=== PATIENT | female | born 1955 | race Caucasian/White ===

== ENCOUNTER 2020-04-14 13:15 | Inpatient (IN) ==
[2020-04-14 14:38] LABS: Alanine Aminotransferase 69 U/L (13-56); Albumin 2.6 G/DL (3.4-5.0); Alkaline Phosphatase 104 U/L (45-117); Aspartate Amino Transferase 31 U/L (0-37); Bilirubin,Total < 0.39 MG/DL (0.2-1.0); Blood Urea Nitrogen 27 MG/DL (7-18); Calcium 9.1 MG/DL (8.5-10.1); Estimated Glom Filtration Rate 14 ML/MIN; Glucose 225 MG/DL (74-106); Osmolality,Calculated 290.4 MOS/KG (273-304); Total Protein 6.6 G/DL (6.4-8.3)
[2020-04-14] MEDS ORDERED: POTASSIUM CHLORIDE 20 MEQ TABLET PO ONE ×2 (14:45→14:46)
[2020-04-14 14:46] LABS: Basophils % 0.1 % (0.0-0.8); Eosinophils % 0.1 % (0.00-10.9); Hematocrit 51.2 VOL% (35.7-47.0); Hemoglobin 17.8 GM/DL (12.0-16.0); Immature Granulocytes Absolute 0.54 #; Lymphocytes # 0.7 10*3/uL (1.4-4.0); Lymphocytes % 3.7 % (21.3-54.2); Mean Corpuscular HGB Conc 34.8 GM/DL (32-36); Mean Corpuscular Volume 102.4 FL (87-102); Mean Platelet Volume 9.4 FL (9.6-12.0); Monocytes % 16.5 % (1.7-12.7); NRBC # 0.52 10*3/uL; Neutrophils % 76.6 % (38.7-73.9); Platelet Count 449 T/CUMM (130-400); Red Cell Distribution Width 19.1 % (9.3-17.3); White Blood Count 17.8 T/CUMM (4-12)
[2020-04-14] MEDS ORDERED: POTASSIUM CHLORIDE 20 MEQ/15 ML UDCUP ONE (14:56)
[2020-04-14] MEDS ORDERED: LACTATED RINGERS 1,000 ML IV ONE (15:24)
[2020-04-14 15:34] LABS: Lymphocytes 2 % (20-55); Macrocytosis 1+; Nucleated Red Blood Cells 3 (0-5); Platelet Estimate Adequate; Polychromasia 1+; Segmented Neutrophils 82 % (50-85); Total Cells Counted 100
[2020-04-14] MEDS ORDERED: POTASSIUM CHLORIDE RIDER 10 MEQ in PREMIX 1 EACH IV ONE (15:42)
[2020-04-14 16:00] LABS: ABG Base Excess -25.4 MMOL/L (-2.5-2.5); ABG HCO3 8.1 MMOL/L (20-26); ABG Oxygen Saturation 98.1 % (95-100); ABG TCO2 4.5 MMOL/L (23-27)
[2020-04-14] MEDS ORDERED: POTASSIUM CHLORIDE INJ 30 MEQ in SODIUM CHLORIDE 0.9% 1,000 ML IV SCH (16:00)
[2020-04-14 16:02] LABS: INR 1.4; PT Patient Result 15.1 SECS (9.8-11.9); Partial Thromboplastin Time 24.2 SECS (23.9-33.8)
[2020-04-14 16:03] LABS: ABG PH 7.082 (7.35-7.45)
[2020-04-14 16:04] LABS: ABG PCO2 16.6 MM HG (35-48)
[2020-04-14] MEDS ORDERED: DEXTROSE 50% 25 GM/50 ML VIAL IV PRN (16:12)
[2020-04-14] MEDS ORDERED: ONDANSETRON 4 MG/2 ML VIAL IV PRN (16:12)
[2020-04-14] MEDS ORDERED: GLUCAGON 1 MG VIAL IM PRN (16:12)
[2020-04-14] MEDS ORDERED: ACETAMINOPHEN 325 MG TABLET PO PRN (16:42)
[2020-04-14 17:01] LABS: Bacteria,Urine Few /HPF (Few); Bilirubin,Urine Negative (Negative); Blood, Urine Large mg/dL (Negative); Glucose,Urine (UA) 50 mg/dL (Negative); Ketones,Urine Negative (Negative); Mucus,Urine Occasional /LPF (Occasional); Nitrite,Urine Negative (Negative); Protein,Urine 30 MG/DL; Squamous Epithelial Cell,Urine Occasional /HPF (0-10); Urine Appearance Slightly Hazy (Clear); Urine Color Yellow (Yellow); Urine Urobilinogen < 2.0 EU/DL (0.2-1.0); WBC,Urine 4 /HPF (0-6)
[2020-04-14] MEDS: ENOXAPARIN 30 MG/0.3 ML SYRINGE SUBCUT SCH (17:30)
[2020-04-14 18:46] LABS: Barbiturates Screen,Urine Negative (Negative); Benzodiazepines Screen,Urine Negative (Negative); Cannabinoid Screen,Urine Negative (Negative); Opiate Screen,Urine Negative (Negative); Phencyclidine Screen,Urine Negative (Negative)
[2020-04-14] MEDS: ASPIRIN EC 81 MG TABLET PO SCH (23:50)
[2020-04-14] MEDS: valACYclovir 500 MG TABLET PO SCH (23:50)
[2020-04-14] MEDS: SODIUM BICARB INJ 50 MEQ in SODIUM CHLORIDE 0.45% 1,000 ML IV SCH (23:50)
[2020-04-15] MEDS ORDERED: INFLUENZA VIRUS VACCINE 0.5 ML SYRINGE IM ONE (02:00)
[2020-04-15] MEDS: SODIUM BICARB INJ 50 MEQ in SODIUM CHLORIDE 0.45% 1,000 ML IV SCH (05:38)
[2020-04-15 05:39] LABS: Basophils % 0.1 % (0.0-0.8); Eosinophils % 0.1 % (0.00-10.9); Hematocrit 43.7 VOL% (35.7-47.0); Hemoglobin 15.6 GM/DL (12.0-16.0); Immature Granulocytes % 3.1 %; Immature Granulocytes Absolute 0.52 #; Lymphocytes # 0.9 10*3/uL (1.4-4.0); Lymphocytes % 5.4 % (21.3-54.2); Mean Corpuscular HGB Conc 35.7 GM/DL (32-36); Mean Corpuscular Volume 99.1 FL (87-102); Mean Platelet Volume 9.9 FL (9.6-12.0); Monocytes % 18.3 % (1.7-12.7); NRBC # 0.49 10*3/uL; Platelet Count 385 T/CUMM (130-400); Red Blood Count 4.41 MC/CUMM (3.8-5.5); Red Cell Distribution Width 18.2 % (9.3-17.3)
[2020-04-15 06:07] LABS: Alanine Aminotransferase 53 U/L (13-56); Albumin 2.2 G/DL (3.4-5.0); Alkaline Phosphatase 89 U/L (45-117); Aspartate Amino Transferase 22 U/L (0-37); Bilirubin,Total < 0.39 MG/DL (0.2-1.0); Blood Urea Nitrogen 33 MG/DL (7-18); Calcium 8.4 MG/DL (8.5-10.1); Estimated Glom Filtration Rate 12 ML/MIN; Glucose 149 MG/DL (74-106); HDL Cholesterol 31 MG/DL (40-60); Osmolality,Calculated 295.8 MOS/KG (273-304); Risk Ratio 4.84; Thyroid Stimulating Hormone 0.845 uIU/ml (0.358-3.74); Total Protein 5.6 G/DL (6.4-8.3); Triglycerides 371 MG/DL (2-150); VLDL CHOLESTEROL 74.2 MG/DL
[2020-04-15 06:09] LABS: Band Neutrophils 2 % (0-10); Hypochromasia 1+; Lymphocytes 8 % (20-55); Macrocytosis 1+; Nucleated Red Blood Cells 2 (0-5); Segmented Neutrophils 74 % (50-85); Total Cells Counted 100
[2020-04-15 06:10] LABS: Platelet Estimate Normal; Polychromasia Slight; Target Cells Slight
[2020-04-15 06:11] LABS: Anisocytosis 1+
[2020-04-15] MEDS: POTASSIUM CHLORIDE RIDER 10 MEQ in PREMIX 1 EACH IV PRN ×10 (06:22→23:52)
[2020-04-15] MEDS ORDERED: SODIUM BICARB INJ 100 MEQ in SODIUM CHLORIDE 0.45% 1,000 ML IV SCH (06:55)
[2020-04-15] MEDS ORDERED: LURASIDONE 40 MG TABLET PO SCH (09:00)
[2020-04-15] MEDS: [UNRECOGNIZED DRUG - OTHER] IV SCH ×2 (09:10→23:55)
[2020-04-15] MEDS: POTASSIUM CHLORIDE IV SCH ×2 (09:10→23:55)
[2020-04-15] MEDS: SODIUM BICARB IV SCH ×2 (09:10→23:55)
[2020-04-15] MEDS: TOLTERODINE 2 MG TABLET PO SCH (10:01)
[2020-04-15] MEDS: PANTOPRAZOLE 40 MG VIAL IV SCH (10:02)
[2020-04-15] MEDS: valACYclovir 500 MG TABLET PO SCH ×2 (10:02→21:23)
[2020-04-15] MEDS: POTASSIUM CHLORIDE 20 MEQ TABLET PO SCH ×2 (14:14→21:22)
[2020-04-15 17:17] LABS: Calcium 8.6 MG/DL (8.5-10.1); Osmolality,Calculated 296.8 MOS/KG (273-304)
[2020-04-15] MEDS: ENOXAPARIN 30 MG/0.3 ML SYRINGE SUBCUT SCH (18:18)
[2020-04-15] MEDS: ASPIRIN EC 81 MG TABLET PO SCH (21:23)
[2020-04-16 04:24] LABS: ABG Base Excess -18.1 MMOL/L (-2.5-2.5); ABG HCO3 11.6 MMOL/L (20-26); ABG PH 7.248 (7.35-7.45)
[2020-04-16 04:27] LABS: ABG PCO2 18.3 MM HG (35-48)
[2020-04-16 06:37] LABS: Bacteria,Urine Occasional /HPF (Few); Bilirubin,Urine Negative (Negative); Blood, Urine Moderate mg/dL (Negative); Glucose,Urine (UA) Negative (Negative); Ketones,Urine Negative (Negative); Mucus,Urine Occasional /LPF (Occasional); Nitrite,Urine Positive (Negative); Protein,Urine 30 MG/DL; RBC,Urine 2 /HPF (0-4); Squamous Epithelial Cell,Urine Occasional /HPF (0-10); Urine Appearance CLEAR (Clear); Urine Color Yellow (Yellow); Urine Urobilinogen < 2.0 EU/DL (0.2-1.0); WBC,Urine 13 /HPF (0-6)
[2020-04-16 06:48] LABS: Basophils % 0.1 % (0.0-0.8); Eosinophils % 0.1 % (0.00-10.9); Hematocrit 42.3 VOL% (35.7-47.0); Hemoglobin 15.2 GM/DL (12.0-16.0); Immature Granulocytes % 3.8 %; Immature Granulocytes Absolute 0.63 #; Lymphocytes # 0.9 10*3/uL (1.4-4.0); Lymphocytes % 5.4 % (21.3-54.2); Mean Corpuscular HGB Conc 35.9 GM/DL (32-36); Mean Corpuscular Volume 99.1 FL (87-102); Mean Platelet Volume 9.7 FL (9.6-12.0); Monocytes % 14.9 % (1.7-12.7); NRBC # 0.34 10*3/uL; Neutrophils % 75.7 % (38.7-73.9); Platelet Count 308 T/CUMM (130-400); Red Blood Count 4.27 MC/CUMM (3.8-5.5); Red Cell Distribution Width 19.3 % (9.3-17.3); White Blood Count 16.4 T/CUMM (4-12)
[2020-04-16 07:09] LABS: Uric Acid 8.3 MG/DL (2.6-6.0)
[2020-04-16 07:19] LABS: Calcium 8.4 MG/DL (8.5-10.1); Osmolality,Calculated 301.6 MOS/KG (273-304)
[2020-04-16 07:26] LABS: Band Neutrophils 5 % (0-10); Lymphocytes 8 % (20-55); Nucleated Red Blood Cells 3 (0-5); Platelet Estimate Adequate; Segmented Neutrophils 76 % (50-85); Total Cells Counted 100
[2020-04-16 07:27] LABS: Macrocytosis Slight
[2020-04-16] MEDS: valACYclovir 500 MG TABLET PO SCH ×2 (09:08→21:43)
[2020-04-16] MEDS: POTASSIUM CHLORIDE 20 MEQ TABLET PO SCH ×2 (09:08→21:43)
[2020-04-16] MEDS: TOLTERODINE 2 MG TABLET PO SCH (09:09)
[2020-04-16] MEDS: PANTOPRAZOLE 40 MG VIAL IV SCH (09:09)
[2020-04-16] MEDS: HEPARIN 5,000 UNIT/1 ML VIAL SUBCUT SCH ×2 (10:24→21:44)
[2020-04-16] MEDS: POTASSIUM CHLORIDE IV SCH ×3 (11:45→17:28)
[2020-04-16] MEDS: [UNRECOGNIZED DRUG - OTHER] IV SCH ×3 (11:45→17:28)
[2020-04-16] MEDS: SODIUM BICARB IV SCH ×3 (11:45→17:28)
[2020-04-16] MEDS: ASPIRIN EC 81 MG TABLET PO SCH (21:44)
[2020-04-17 05:00] LABS: ABG Base Excess -13.4 MMOL/L (-2.5-2.5); ABG HCO3 14.2 MMOL/L (20-26); ABG Oxygen Saturation 97.7 % (95-100); ABG PH 7.347 (7.35-7.45); ABG PO2 98.1 MM HG (80-95); ABG TCO2 9.4 MMOL/L (23-27); Allen Test Positive; Pt O2 Delivery Device Room Air
[2020-04-17 05:02] LABS: ABG PCO2 19.4 MM HG (35-48)
[2020-04-17] MEDS: [UNRECOGNIZED DRUG - OTHER] IV SCH (05:22)
[2020-04-17] MEDS: SODIUM BICARB IV SCH (05:22)
[2020-04-17] MEDS: POTASSIUM CHLORIDE IV SCH (05:22)
[2020-04-17 05:43] LABS: Basophils % 0.1 % (0.0-0.8); Eosinophils # 0.1 10*3/uL (0.0-0.87); Eosinophils % 0.6 % (0.00-10.9); Hematocrit 37.1 VOL% (35.7-47.0); Hemoglobin 13.4 GM/DL (12.0-16.0); Immature Granulocytes % 4.9 %; Immature Granulocytes Absolute 0.73 #; Lymphocytes % 6.4 % (21.3-54.2); Mean Corpuscular HGB Conc 36.1 GM/DL (32-36); Mean Corpuscular Volume 101.4 FL (87-102); Mean Platelet Volume 10.3 FL (9.6-12.0); Monocytes % 10.7 % (1.7-12.7); NRBC # 0.17 10*3/uL; Neutrophils % 77.3 % (38.7-73.9); Platelet Count 273 T/CUMM (130-400); Red Blood Count 3.66 MC/CUMM (3.8-5.5); Red Cell Distribution Width 18.8 % (9.3-17.3)
[2020-04-17 06:09] LABS: Albumin 1.7 G/DL (3.4-5.0); Bilirubin,Total 0.8 MG/DL (0.2-1.0); Calcium 8.3 MG/DL (8.5-10.1); Osmolality,Calculated 285.5 MOS/KG (273-304); Total Protein 5.3 G/DL (6.4-8.3)
[2020-04-17 06:34] LABS: Band Neutrophils 2 % (0-10); Eosinophils 1 % (0-10); Lymphocytes 9 % (20-55); Nucleated Red Blood Cells 1 (0-5); Platelet Estimate Normal; Segmented Neutrophils 86 % (50-85); Total Cells Counted 100
[2020-04-17] MEDS ORDERED: LEVOFLOXACIN INJ 500 MG in PREMIX 1 EACH IV ONE (08:11)
[2020-04-17] MEDS: HEPARIN 5,000 UNIT/1 ML VIAL SUBCUT SCH ×2 (09:48→22:11)
[2020-04-17] MEDS: PANTOPRAZOLE 40 MG VIAL IV SCH (09:51)
[2020-04-17] MEDS: valACYclovir 500 MG TABLET PO SCH ×2 (09:52→22:11)
[2020-04-17] MEDS: TOLTERODINE 2 MG TABLET PO SCH (10:07)
[2020-04-17] MEDS: LURASIDONE 40 MG TABLET PO SCH (10:08)
[2020-04-17] MEDS: SODIUM BICARB INJ 150 MEQ in DEXTROSE 5% 850 ML IV SCH ×2 (11:16→18:15)
[2020-04-17] MEDS: DESITIN 4OZ/NYSTATIN 15 GRAM MIXTURE PASTE TOP SCH (22:11)
[2020-04-17] MEDS: ASPIRIN EC 81 MG TABLET PO SCH (22:12)
[2020-04-18 04:20] LABS: ABG HCO3 19.5 MMOL/L (20-26); ABG Oxygen Saturation 98.9 % (95-100); ABG PCO2 25.6 MM HG (35-48); ABG PH 7.423 (7.35-7.45); ABG TCO2 14.4 MMOL/L (23-27); Allen Test Positive
[2020-04-18] MEDS: SODIUM BICARB INJ 150 MEQ in DEXTROSE 5% 850 ML IV SCH (04:35)
[2020-04-18 06:17] LABS: Calcium 7.8 MG/DL (8.5-10.1); Osmolality,Calculated 298.6 MOS/KG (273-304)
[2020-04-18 06:29] LABS: Acetaminophen 4.8 UG/ML (10-30); Salicylate < 2.8 MG/DL (2.8-20)
[2020-04-18] MEDS: POTASSIUM CHLORIDE 20 MEQ TABLET PO PRN ×3 (07:16→13:18)
[2020-04-18 07:19] LABS: Basophils # 0.1 10*3/uL (0.0-0.2); Basophils % 0.8 % (0.0-0.8); Eosinophils # 0.1 10*3/uL (0.0-0.87); Eosinophils % 0.8 % (0.00-10.9); Hematocrit 29.7 VOL% (35.7-47.0); Immature Granulocytes % 5.6 %; Immature Granulocytes Absolute 0.99 #; Lymphocytes # 0.9 10*3/uL (1.4-4.0); Lymphocytes % 4.9 % (21.3-54.2); Mean Corpuscular Volume 96.7 FL (87-102); Mean Platelet Volume 10.3 FL (9.6-12.0); Monocytes % 7.2 % (1.7-12.7); NRBC # 0.17 10*3/uL; Neutrophils % 80.7 % (38.7-73.9); Platelet Count 272 T/CUMM (130-400); Red Blood Count 3.07 MC/CUMM (3.8-5.5); White Blood Count 17.7 T/CUMM (4-12)
[2020-04-18 07:25] LABS: Anisocytosis 2+; Band Neutrophils 20 % (0-10); Eosinophils 2 % (0-10); Lymphocytes 5 % (20-55); Macrocytosis 2+; Nucleated Red Blood Cells 2 (0-5); Platelet Estimate Normal; Segmented Neutrophils 65 % (50-85); Total Cells Counted 100
[2020-04-18 07:26] LABS: Toxic Granulation 1+
[2020-04-18] MEDS: valACYclovir 500 MG TABLET PO SCH ×2 (10:30→21:12)
[2020-04-18] MEDS: LURASIDONE 40 MG TABLET PO SCH (10:31)
[2020-04-18] MEDS: HEPARIN 5,000 UNIT/1 ML VIAL SUBCUT SCH ×2 (10:38→21:16)
[2020-04-18] MEDS: DESITIN 4OZ/NYSTATIN 15 GRAM MIXTURE PASTE TOP SCH ×2 (10:42→21:17)
[2020-04-18] MEDS: PANTOPRAZOLE 40 MG VIAL IV SCH (13:18)
[2020-04-18] MEDS: TOLTERODINE 2 MG TABLET PO SCH (13:18)
[2020-04-18] MEDS: POTASSIUM CHLORIDE INJ 30 MEQ in DEXTROSE 5% NACL 0.9% 1,000 ML IV SCH (17:02)
[2020-04-18] MEDS: ASPIRIN EC 81 MG TABLET PO SCH (21:12)
[2020-04-19 05:48] LABS: Eosinophils # 0.4 10*3/uL (0.0-0.87); Eosinophils % 1.7 % (0.00-10.9); Hemoglobin 11.5 GM/DL (12.0-16.0); Immature Granulocytes % 8.8 %; Immature Granulocytes Absolute 1.93 #; Lymphocytes # 1.6 10*3/uL (1.4-4.0); Lymphocytes % 7.1 % (21.3-54.2); Mean Corpuscular HGB Conc 37.1 GM/DL (32-36); Mean Corpuscular Volume 96.3 FL (87-102); Mean Platelet Volume 10.8 FL (9.6-12.0); Monocytes % 6.7 % (1.7-12.7); NRBC # 0.12 10*3/uL; Neutrophils % 75.7 % (38.7-73.9); Platelet Count 265 T/CUMM (130-400); Red Blood Count 3.22 MC/CUMM (3.8-5.5); Red Cell Distribution Width 18.4 % (9.3-17.3); White Blood Count 21.9 T/CUMM (4-12)
[2020-04-19] MEDS: POTASSIUM CHLORIDE INJ 30 MEQ in DEXTROSE 5% NACL 0.9% 1,000 ML IV SCH ×2 (05:54→21:50)
[2020-04-19 06:19] LABS: Band Neutrophils 2 % (0-10); Eosinophils 2 % (0-10); Hypochromasia 1+; Lymphocytes 9 % (20-55); Microcytosis Slight; Nucleated Red Blood Cells 3 (0-5); Ovalocytes Slight; Platelet Estimate Adequate; Segmented Neutrophils 79 % (50-85); Total Cells Counted 100
[2020-04-19 06:29] LABS: Osmolality,Calculated 294.6 MOS/KG (273-304)
[2020-04-19] MEDS ORDERED: MAGNESIUM SULF RIDER 2 GM in PREMIX 1 EACH IV ONE (07:38)
[2020-04-19] MEDS: LURASIDONE 40 MG TABLET PO SCH (09:57)
[2020-04-19] MEDS: EZETIMIBE 10 MG TABLET PO SCH (10:01)
[2020-04-19] MEDS: TOLTERODINE 2 MG TABLET PO SCH (10:02)
[2020-04-19] MEDS: DESITIN 4OZ/NYSTATIN 15 GRAM MIXTURE PASTE TOP SCH ×2 (10:02→21:50)
[2020-04-19] MEDS: valACYclovir 500 MG TABLET PO SCH ×2 (10:02→21:45)
[2020-04-19] MEDS: METOPROLOL TARTRATE 25 MG TABLET PO SCH ×2 (10:02→21:45)
[2020-04-19] MEDS: HEPARIN 5,000 UNIT/1 ML VIAL SUBCUT SCH ×2 (10:05→21:45)
[2020-04-19] MEDS: PANTOPRAZOLE 40 MG VIAL IV SCH (10:11)
[2020-04-19] MEDS: SODIUM BICARB INJ 150 MEQ in DEXTROSE 5% 850 ML IV SCH (10:53)
[2020-04-19] MEDS: LETROZOLE 2.5 MG TABLET PO SCH (11:05)
[2020-04-19] MEDS: LEVOFLOXACIN INJ 250 MG in PREMIX 1 EACH IV SCH (12:21)
[2020-04-19] MEDS: SODIUM BICARBONATE 650 MG TABLET PO SCH ×2 (15:16→21:45)
[2020-04-19] MEDS: ASPIRIN EC 81 MG TABLET PO SCH (21:45)
[2020-04-20 05:58] LABS: Basophils % 0.1 % (0.0-0.8); Eosinophils # 0.6 10*3/uL (0.0-0.87); Eosinophils % 3.1 % (0.00-10.9); Hematocrit 26.9 VOL% (35.7-47.0); Hemoglobin 10.1 GM/DL (12.0-16.0); Immature Granulocytes % 9.7 %; Immature Granulocytes Absolute 1.77 #; Lymphocytes # 1.2 10*3/uL (1.4-4.0); Lymphocytes % 6.7 % (21.3-54.2); Mean Corpuscular HGB Conc 37.5 GM/DL (32-36); Mean Corpuscular Volume 95.4 FL (87-102); Mean Platelet Volume 11.1 FL (9.6-12.0); Monocytes % 6.4 % (1.7-12.7); NRBC # 0.11 10*3/uL; Platelet Count 254 T/CUMM (130-400); Red Blood Count 2.82 MC/CUMM (3.8-5.5); Red Cell Distribution Width 18.1 % (9.3-17.3); White Blood Count 18.3 T/CUMM (4-12)
[2020-04-20 06:04] LABS: Calcium 7.6 MG/DL (8.5-10.1)
[2020-04-20 06:22] LABS: Band Neutrophils 1 % (0-10); Eosinophils 4 % (0-10); Hypochromasia 1+; Lymphocytes 8 % (20-55); Microcytosis 1+; Platelet Estimate Adequate; Segmented Neutrophils 83 % (50-85); Total Cells Counted 100
[2020-04-20] MEDS: POTASSIUM CHLORIDE 20 MEQ TABLET PO PRN (06:29)
[2020-04-20] MEDS ORDERED: POTASSIUM CHLORIDE 20 MEQ TABLET PO ONE (07:48)
[2020-04-20] MEDS: valACYclovir 500 MG TABLET PO SCH ×2 (10:13→21:10)
[2020-04-20] MEDS: LURASIDONE 40 MG TABLET PO SCH (10:13)
[2020-04-20] MEDS: TOLTERODINE 2 MG TABLET PO SCH (10:13)
[2020-04-20] MEDS: EZETIMIBE 10 MG TABLET PO SCH (10:13)
[2020-04-20] MEDS: LETROZOLE 2.5 MG TABLET PO SCH (10:13)
[2020-04-20] MEDS: METOPROLOL TARTRATE 25 MG TABLET PO SCH ×2 (10:14→21:10)
[2020-04-20] MEDS: DESITIN 4OZ/NYSTATIN 15 GRAM MIXTURE PASTE TOP SCH ×2 (10:14→21:16)
[2020-04-20] MEDS: SODIUM BICARBONATE 650 MG TABLET PO SCH ×3 (10:14→21:09)
[2020-04-20] MEDS: PANTOPRAZOLE 40 MG VIAL IV SCH (10:20)
[2020-04-20] MEDS: HEPARIN 5,000 UNIT/1 ML VIAL SUBCUT SCH ×2 (10:23→21:10)
[2020-04-20] MEDS: POTASSIUM CHLORIDE INJ 30 MEQ in DEXTROSE 5% NACL 0.9% 1,000 ML IV SCH (16:53)
[2020-04-20] MEDS: POTASSIUM CHLORIDE 20 MEQ TABLET PO SCH (21:09)
[2020-04-20] MEDS: ASPIRIN EC 81 MG TABLET PO SCH (21:10)
[2020-04-21] MEDS: POTASSIUM CHLORIDE INJ 30 MEQ in DEXTROSE 5% NACL 0.9% 1,000 ML IV SCH (00:44)
[2020-04-21 06:36] LABS: Basophils % 0.1 % (0.0-0.8); Eosinophils # 0.5 10*3/uL (0.0-0.87); Eosinophils % 2.7 % (0.00-10.9); Hematocrit 27.2 VOL% (35.7-47.0); Immature Granulocytes % 8.9 %; Immature Granulocytes Absolute 1.61 #; Lymphocytes # 1.2 10*3/uL (1.4-4.0); Lymphocytes % 6.8 % (21.3-54.2); Mean Corpuscular HGB Conc 36.8 GM/DL (32-36); Mean Corpuscular Volume 97.8 FL (87-102); Mean Platelet Volume 11.6 FL (9.6-12.0); Monocytes % 6.5 % (1.7-12.7); NRBC # 0.04 10*3/uL; Platelet Count 168 T/CUMM (130-400); Red Blood Count 2.78 MC/CUMM (3.8-5.5); Red Cell Distribution Width 18.8 % (9.3-17.3); White Blood Count 18.2 T/CUMM (4-12)
[2020-04-21 06:39] LABS: Calcium 7.6 MG/DL (8.5-10.1); Osmolality,Calculated 293.4 MOS/KG (273-304)
[2020-04-21 07:00] LABS: Band Neutrophils 3 % (0-10); Eosinophils 2 % (0-10); Lymphocytes 6 % (20-55); Platelet Estimate Adequate; Segmented Neutrophils 83 % (50-85); Total Cells Counted 100
[2020-04-21 07:01] LABS: Hypochromasia 1+; Microcytosis Slight; Ovalocytes Slight
[2020-04-21] MEDS: LETROZOLE 2.5 MG TABLET PO SCH (09:00)
[2020-04-21] MEDS: SODIUM BICARBONATE 650 MG TABLET PO SCH (09:01)
[2020-04-21] MEDS: POTASSIUM CHLORIDE 20 MEQ TABLET PO SCH (09:01)
[2020-04-21] MEDS: EZETIMIBE 10 MG TABLET PO SCH (09:01)
[2020-04-21] MEDS: valACYclovir 500 MG TABLET PO SCH (09:01)
[2020-04-21] MEDS: DESITIN 4OZ/NYSTATIN 15 GRAM MIXTURE PASTE TOP SCH (09:01)
[2020-04-21] MEDS: TOLTERODINE 2 MG TABLET PO SCH (09:01)
[2020-04-21] MEDS: METOPROLOL TARTRATE 25 MG TABLET PO SCH (09:02)
[2020-04-21] MEDS: PANTOPRAZOLE 40 MG VIAL IV SCH (09:02)
[2020-04-21] MEDS: HEPARIN 5,000 UNIT/1 ML VIAL SUBCUT SCH (09:02)
[2020-04-21] MEDS: LEVOFLOXACIN INJ 250 MG in PREMIX 1 EACH IV SCH (10:39)
[2020-04-21] MEDS: LURASIDONE 40 MG TABLET PO SCH (10:39)
[2020-04-21 12:36] VITALS: BP 146/71
[2020-04-21 13:09] LABS: Bacteria,Urine Occasional /HPF (Few); Bilirubin,Urine Negative (Negative); Blood, Urine Small mg/dL (Negative); Glucose,Urine (UA) Negative (Negative); Ketones,Urine Negative (Negative); Nitrite,Urine Negative (Negative); Protein,Urine Negative; RBC,Urine 2 /HPF (0-4); Urine Appearance CLEAR (Clear); Urine Color Colorless (Yellow); Urine Specific Gravity 1.002 (1.001-1.035); Urine Urobilinogen < 2.0 EU/DL (0.2-1.0); WBC,Urine 1 /HPF (0-6)
== END 2020-04-21 12:41 | DRG 682 ==
LOC: N.ED 13:15 → N.EDINP 16:12 → N.TELES 18:35
PROVIDERS: ADMIT Internal Medicine; ATTEND Internal Medicine